=== PATIENT | male | born 1975 | race Hispanic/Latino ===

== ENCOUNTER 2018-02-17 19:13 | Emergency (ER) | payer SELFPAY ==
[2018-02-17] MEDS ORDERED: TETANUS & DIPHTHERIA TOX,ADULT 0.5 ML VIAL ONE (19:55)
[2018-02-17] MEDS ORDERED: HYDROCODONE/APAP 5/325 MG TAB ONE (19:55)
--- NOTE | 2018-02-17 20:24 | RAD REPORT ---
EXAM DESCRIPTION: RAD - Hand Left 3 View - 02/17/2018 8:13 pm CLINICAL HISTORY: Thumb laceration COMPARISON: No comparisons FINDINGS: Soft tissue swelling affects the first digit. No fracture, dislocation or radiopaque forei gn body.
--- NOTE | 2018-02-17 20:50 | ER ---
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 Transition of care: patient was not received from another setting of care. Complicating Factors: There are no complicating factors for this patient. Onset of symptoms was February 17, 2018. Risk Assessment: Do you want to hurt yourself or someone else? Patient reports no desire to harm self or others. Initial Sepsis Screen: Does the patient meet any 2 criteria? No. Patient's initial sepsis screen is negative. Does the patient have a suspected source of infection? No. Patient's initial sepsis screen is negative. Care prior to arrival: None. 19:26 Method Of Arrival: Ambulatory aj 19:26 Acuity: LESLY 4 aj Triage Assessment: 19:27 General: Appears in no apparent distress. comfortable, Behavior is calm, cooperative, aj appropriate for age. Pain: Complains of pain in palmar aspect of distal phalanx of left thumb Pain currently is 10 out of 10 on a pain scale. Neuro: Level of Consciousness is awake, alert, obeys commands, Oriented to person, place, time, situation, Appropriate for age. Respiratory: Airway is patent Respiratory effort is even, unlabored, Respiratory pattern is regular, symmetrical. Derm: Skin is intact, is healthy with good turgor, Skin is pink, warm \T\ dry. normal. Injury Description: Avulsion sustained to palmar aspect of distal phalanx of left thumb and left thumbnail. Historical: - Allergies: 19:27 No Known Allergies; aj - Home Meds: 19:27 None [Active]; aj - PMHx: 19:27 None; aj - PSHx: 19:27 None; aj - Immunization history:: Last tetanus immunization: unknown. - Social history:: Smoking status: Patient/guardian denies using tobacco. - Ebola Screening: : Patient negative for fever greater than or equal to 101.5 degrees Fahrenheit, and additional compatible Ebola Virus Disease symptoms Patient denies exposure to infectious person Patient denies travel to an Ebola-affected area in the 21 days before illness onset No symptoms or risks identified at this time. Screenin:50 Abuse screen: Denies threats or abuse. Nutritional screening: No deficits noted. la1 Tuberculosis screening: No symptoms or risk factors identified. Fall Risk None identified. Assessment: 19:49 General: Appears in no apparent distress. Behavior is calm, cooperative. Pain: la1 Complains of pain in palmar aspect of distal phalanx of left thumb. Musculoskeletal: Circulation, motion, and sensation intact. Injury Description: Avulsion sustained to palmar aspect of distal phalanx of left thumb is partial was sustained less than 30 minutes ago. Vital Signs: 19:27 BP 195 / 122; Pulse 60; Resp 18; Temp 98.5; Pulse Ox 98% on R/A; Weight 83.91 kg; aj Height 5 ft. 8 in. (172.72 cm); 20:58 BP 114 / 76; Pulse 81; Resp 18; Temp 97.5; Pulse Ox 98% on R/A; la1 19:27 Body Mass Index 28.13 (83.91 kg, 172.72 cm) aj ED Course: 19:15 Patient arrived in ED. ag3 19:27 Triage completed. aj 19:27 Arm band placed on right wrist. Patient placed in an exam room. aj 19:29 Marcus Wiseman, RN is Primary Nurse. la1 19:30 Rashawn Alarcon NP is PHCP. pm1 19:30 Cecelia Sarabia MD is Attending Physician. pm1 19:50 Call light in reach. la1 20:13 Hand Left 3 View XRAY In Process Unspecified. EDMS 20:58 No provider procedures requiring assistance completed. Patient did not have IV access la1 during this emergency room visit. Administered Medications: 19:49 Drug: Tetanus-Diphtheria Toxoid Adult 0.5 ml {Sample Worker: [employer]. Exp: la1 02/28/2020. Lot #: [id number]. } Route: IM; Site: right deltoid; 20:59 Follow up: Response: No adverse reaction la1 19:49 Drug: [place] 5 mg-325 mg 1 tabs Route: PO; la1 20:59 Follow up: Response: No adverse reaction; Pain is decreased la1 Outcome: 20:50 Discharge ordered by . pm1 20:58 Discharged to home ambulatory. la1 20:58 Condition: stable 20:58 Discharge instructions given to patient, Instructed on discharge instructions, follow up and referral plans. medication usage, Demonstrated understanding of instructions, follow-up care, medications, Prescriptions given X 2. 20:59 Patient left the ED. la1 Signatures: Dispatcher [employer] EDChristine Guadalupe RN RN aj Attema, Lee, RN RN la1 Rashawn Alarcon NP REHABILITATION SUPERVISOR pm1 Gely Ann ag3
--- NOTE | 2018-02-17 20:50 | EDPHYS ---
Physician Documentation [facility] Name: Juan Solitario Age: 42 yrs Sex: Male : 1975 Arrival Date: 02/17/2018 Time: 19:15 Bed 23 Private MD: ED Physician Cecelia Sarabia HPI: 02/17 20:30 This 42 yrs old Male presents to ER via Ambulatory with complaints of pm1 Laceration To Hand. 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 The laceration(s) is(are) located on the medial aspect of distal phalanx of left thumb. Onset: The symptoms/episode began/occurred just prior to arrival. Associated signs and symptoms: Pertinent negatives: deformity, dizziness, heavy bleeding, numbness distal to injury, suspected foreign body. The patient has not experienced similar symptoms in the past. The patient has not recently seen a physician. Historical: - Allergies: 19:27 No Known Allergies; aj - Home Meds: 19:27 None [Active]; aj - PMHx: 19:27 None; aj - PSHx: 19:27 None; aj - Immunization history:: Last tetanus immunization: unknown. - Social history:: Smoking status: Patient/guardian denies using tobacco. - Ebola Screening: : Patient negative for fever greater than or equal to 101.5 degrees Fahrenheit, and additional compatible Ebola Virus Disease symptoms Patient denies exposure to infectious person Patient denies travel to an Ebola-affected area in the 21 days before illness onset No symptoms or risks identified at this time. ROS: 20:30 Constitutional: Negative for fever, chills, and weight loss, Eyes: Negative for injury, pm1 pain, redness, and discharge, ENT: Negative for injury, pain, and discharge, Neck: Negative for injury, pain, and swelling, Cardiovascular: Negative for chest pain, palpitations, and edema, Respiratory: Negative for shortness of breath, cough, wheezing, and pleuritic chest pain, Abdomen/GI: Negative for abdominal pain, nausea, vomiting, diarrhea, and constipation, Back: Negative for injury and pain, : Negative for injury, bleeding, discharge, and swelling. 20:30 Neuro: Negative for headache, weakness, numbness, tingling, and seizure. 20:30 MS/extremity: Positive for laceration, of the medial aspect of distal phalanx of left thumb, Negative for decreased range of motion, deformity. 20:30 Skin: Positive for laceration(s), of the medial aspect of distal phalanx of left thumb. Exam: 20:30 Constitutional: This is a well developed, well nourished patient who is awake, alert, pm1 and in no acute distress. Head/Face: Normocephalic, atraumatic. Chest/axilla: Normal chest wall appearance and motion. Nontender with no deformity. No lesions are appreciated. Cardiovascular: Regular rate and rhythm with a normal S1 and S2. No gallops, murmurs, or rubs. Normal PMI, no JVD. No pulse deficits. Respiratory: Lungs have equal breath sounds bilaterally, clear to auscultation and percussion. No rales, rhonchi or wheezes noted. No increased work of breathing, no retractions or nasal flaring. Back: No spinal tenderness. No costovertebral tenderness. Full range of motion. 20:30 Skin: Appearance: normal except for affected area, injury, avulsion(s), a small 2 cm(s), of the medial aspect of distal phalanx of left thumb. 20:30 Neuro: Orientation: is normal, Motor: is normal, moves all fours, Sensation: is normal, no obvious gross deficits, Gait: is steady, at a normal pace, without difficulty. Vital Signs: 19:27 BP 195 / 122; Pulse 60; Resp 18; Temp 98.5; Pulse Ox 98% on R/A; Weight 83.91 kg; aj Height 5 ft. 8 in. (172.72 cm); 20:58 BP 114 / 76; Pulse 81; Resp 18; Temp 97.5; Pulse Ox 98% on R/A; la1 19:27 Body Mass Index 28.13 (83.91 kg, 172.72 cm) aj Laceration: 20:30 Wound Repair of 2cm ( 0.8in ) subcutaneous laceration to medial aspect of distal pm1 phalanx of left thumb. avulsion. Distal neuro/vascular/tendon intact. Anesthesia: Local anesthetic administered with 1% lidocaine. Skin closed with 1-0 Prolene using surgicel applied to wound and bleeding stopped.. Dressed with tube gauze, pressure dressing. Patient tolerated well. MDM: 19:30 Patient medically screened. pm1 20:47 Data reviewed: vital signs. Data interpreted: Pulse oximetry: on room air is 98 %. pm1 Interpretation: normal. Counseling: I had a detailed discussion with the patient and/or guardian regarding: the historical points, exam findings, and any diagnostic results supporting the discharge/admit diagnosis, radiology results, the need for outpatient follow up, to return to the emergency department if symptoms worsen or persist or if there are any questions or concerns that arise at home. 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 Exp: la1 02/28/2020. Lot #: [id number]. } Route: IM; Site: right deltoid; 20:59 Follow up: Response: No adverse reaction la1 19:49 Drug: [place] 5 mg-325 mg 1 tabs Route: PO; la1 20:59 Follow up: Response: No adverse reaction; Pain is decreased la1 Disposition: 02/18 02:52 Co-signature as Attending Physician, Cecelia Sarabia MD. [facility] Disposition: 02/17/18 20:50 Discharged to Home. Impression: Laceration without foreign body of left thumb without damage to nail. - Condition is Stable. - Discharge Instructions: Nonsutured Laceration Care. - Prescriptions for Keflex 500 mg Oral Capsule - take 1 capsule by ORAL route every 12 hours for 10 days; 20 capsule. Tylenol- Codeine #3 300-30 mg Oral Tablet - take 2 tablets by ORAL route every 6 hours As needed; 20 tablet. - Medication Reconciliation Form, Thank You Letter, Antibiotic Education, Prescription Opioid Use form. - Follow up: Emergency Department; When: As needed; Reason: Worsening of condition. Follow up: Private Physician; When: 2 - 3 days; Reason: Recheck today's complaints, Continuance of care, Re-evaluation by your physician. - Problem is new. - Symptoms have improved. Signatures: Dispatcher [employer] Christine Harrison RN RN aj Attema, Lee, RN RN la1 Rashawn Alarcon, CANE PACKER CANE PACKER pm1 Cecelia Sarabia MD MD ma2 Corrections: (The following items were deleted from the chart) 02/17 20:59 20:50 02/17/2018 20:50 Discharged to Home. Impression: Laceration without foreign body la1 of left thumb without damage to nail. Condition is Stable. Forms are Medication Reconciliation Form, Thank You Letter, Antibiotic Education, Prescription Opioid Use. Follow up: Emergency Department; When: As needed; Reason: Worsening of condition. Follow up: Private Physician; When: 2 - 3 days; Reason: Recheck today's complaints, Continuance of care, Re-evaluation by your physician. Problem is new. Symptoms have improved. pm1
== END 2018-02-17 20:59 | disposition home or self-care (01) ==
LOC: ER 19:13
PROC: 0JQK0ZZ Repair Left Hand Subcutaneous Tissue and Fascia, Open Approach (ICD-10-PCS; principal; 2018-02-17)
DX: S61.012A Laceration without foreign body of left thumb without damage to nail, initial encounter (principal); W31.89XA Contact with other specified machinery, initial encounter; Y93.89 Activity, other specified; Y92.89 Other specified places as the place of occurrence of the external cause; Y99.8 Other external cause status; Z23 Encounter for immunization
CPT/HCPCS: 90714; 99283

== ENCOUNTER 2018-02-22 14:39 | Emergency (ER) | payer SELFPAY ==
--- NOTE | 2018-02-22 15:43 | EDPHYS ---
Physician Documentation [facility] Name: Juan Solitario Age: 42 yrs Sex: Male : 1975 Arrival Date: 02/22/2018 Time: 14:48 Bed 9 Private MD: ED Physician Remberto Baker HPI: 02/22 15:32 This 42 yrs old Male presents to ER via Ambulatory with complaints of Wound jr8 Check. 15:32 The affected area is on the left hand. Previous treatment: The patient was initially jr8 treated 6 day(s) ago. Progress: The patient reports decreased pain, redness. The patient has not experienced similar symptoms in the past. The patient has not recently seen a physician. Patient cut his left thumb while at work last week. Wants it rechecked to make sure it is healing well . Historical: - Allergies: 15:12 No Known Allergies; hj - Home Meds: 15:12 None [Active]; hj - PMHx: 15:12 None; hj - PSHx: 15:12 None; hj - Immunization history:: Adult Immunizations up to date. - Social history:: Smoking status: Patient/guardian denies using tobacco, Patient/guardian denies using alcohol. - Ebola Screening: : Patient negative for fever greater than or equal to 101.5 degrees Fahrenheit, and additional compatible Ebola Virus Disease symptoms Patient denies exposure to infectious person Patient denies travel to an Ebola-affected area in the 21 days before illness onset. ROS: 15:32 Eyes: Negative for injury, pain, redness, and discharge, ENT: Negative for injury, jr8 pain, and discharge, Neck: Negative for injury, pain, and swelling, Cardiovascular: Negative for chest pain, palpitations, and edema, Respiratory: Negative for shortness of breath, cough, wheezing, and pleuritic chest pain, Abdomen/GI: Negative for abdominal pain, nausea, vomiting, diarrhea, and constipation, Back: Negative for injury and pain, Skin: Negative for injury, rash, and discoloration, Neuro: Negative for headache, weakness, numbness, tingling, and seizure. 15:32 MS/extremity: Positive for avulsion of skin to left hand. Exam: 15:32 Eyes: Pupils equal round and reactive to light, extra-ocular motions intact. Lids and jr8 lashes normal. Conjunctiva and sclera are non-icteric and not injected. Cornea within normal limits. Periorbital areas with no swelling, redness, or edema. ENT: Nares patent. No nasal discharge, no septal abnormalities noted. Tympanic membranes are normal and external auditory canals are clear. Oropharynx with no redness, swelling, or masses, exudates, or evidence of obstruction, uvula midline. Mucous membranes moist. Neck: Trachea midline, no thyromegaly or masses palpated, and no cervical lymphadenopathy. Supple, full range of motion without nuchal rigidity, or vertebral point tenderness. No Meningismus. Cardiovascular: Regular rate and rhythm with a normal S1 and S2. No gallops, murmurs, or rubs. Normal PMI, no JVD. No pulse deficits. Respiratory: Lungs have equal breath sounds bilaterally, clear to auscultation and percussion. No rales, rhonchi or wheezes noted. No increased work of breathing, no retractions or nasal flaring. Abdomen/GI: Soft, non-tender, with normal bowel sounds. No distension or tympany. No guarding or rebound. No evidence of tenderness throughout. Back: No spinal tenderness. No costovertebral tenderness. Full range of motion. Skin: Warm, dry with normal turgor. Normal color with no rashes, no lesions, and no evidence of cellulitis. Neuro: Awake and alert, GCS 15, oriented to person, place, time, and situation. Cranial nerves II-XII grossly intact. Motor strength 5/5 in all extremities. Sensory grossly intact. Cerebellar exam normal. Normal gait. 15:32 Musculoskeletal/extremity: Extremities: grossly normal except: noted in the left thumb: Patient has avulsed lateral portion of left thumb. [place] granulation tissue noted. No purulent drainage. No surrounding erythema or cellulitis noted, ROM: intact in all extremities, Circulation is intact in all extremities. Sensation intact. Vital Signs: 15:13 BP 157 / 98; Pulse 63; Resp 18; Temp 97.8(TE); Pulse Ox 100% on R/A; Weight 72.57 kg; hj Height 5 ft. 7 in. (170.18 cm); 15:13 Body Mass Index 24.53 (72.57 kg, 170.18 cm) MDM: 15:29 Patient medically screened. [facility] 15:32 Data reviewed: vital signs, nurses notes, and as a result, I will discharge patient. jr8 Data interpreted: Pulse oximetry: on room air is 100 %. Interpretation: normal. Counseling: I had a detailed discussion with the patient and/or guardian regarding: the historical points, exam findings, and any diagnostic results supporting the discharge/admit diagnosis, the need for outpatient follow up, a family practitioner, to return to the emergency department if symptoms worsen or persist or if there are any questions or concerns that arise at home. Administered Medications: No medications were administered Disposition: 02/23 06:42 Co-signature as Attending Physician, Remberto Baker MD I agree with the assessment and makayla plan of care. Disposition: 02/22/18 15:43 Discharged to Home. Impression: Avulsion of skin . - Condition is Stable. - Discharge Instructions: Wound Check, Wound Care. - Medication Reconciliation Form, Thank You Letter, Antibiotic Education, Prescription Opioid Use form. - Follow up: Private Physician; When: As needed; Reason: Wound Recheck, Recheck today's complaints, Continuance of care, Re-evaluation by your physician. - Problem is new. - Symptoms have improved. Signatures: Remberto Baker MD MD cha Williams, Irene, RN RN iw Slade Mckeon PA PA jr8 Raul Tavarez RN RN Corrections: (The following items were deleted from the chart) 02/22 15:52 15:32 Wound Care ordered. 8 15:52 15:32 Dressing - Wound ordered. [facility] 15:52 15:43 02/22/2018 15:43 Discharged to Home. Impression: Avulsion of skin . Condition is iw Stable. Forms are Medication Reconciliation Form, Thank You Letter, Antibiotic Education, Prescription Opioid Use. Follow up: Private Physician; When: As needed; Reason: Wound Recheck, Recheck today's complaints, Continuance of care, Re-evaluation by your physician. Problem is new. Symptoms have improved. jr8
--- NOTE | 2018-02-22 15:43 | ER ---
Nurse's Notes [facility] Name: Juan Solitario Age: 42 yrs Sex: Male : 1975 Arrival Date: 02/22/2018 Time: 14:48 Bed 9 Private MD: Diagnosis: Avulsion of skin Presentation: 02/22 15:11 Presenting complaint: Patient states: i cut my L thumb last week and i want my wound to hj be checked again today;. Transition of care: patient was not received from another setting of care. Onset of symptoms was February 22, 2018. Risk Assessment: Do you want to hurt yourself or someone else? Patient reports no desire to harm self or others. Initial Sepsis Screen: Does the patient meet any 2 criteria? No. Patient's initial sepsis screen is negative. Does the patient have a suspected source of infection? No. Patient's initial sepsis screen is negative. Care prior to arrival: None. 15:11 Method Of Arrival: Ambulatory hj 15:11 Acuity: LESLY 4 hj Triage Assessment: 15:13 General: Appears in no apparent distress. uncomfortable, Behavior is calm, cooperative, hj appropriate for age. Pain: Denies pain. Historical: - Allergies: 15:12 No Known Allergies; hj - Home Meds: 15:12 None [Active]; hj - PMHx: 15:12 None; hj - PSHx: 15:12 None; hj - Immunization history:: Adult Immunizations up to date. - Social history:: Smoking status: Patient/guardian denies using tobacco, Patient/guardian denies using alcohol. - Ebola Screening: : Patient negative for fever greater than or equal to 101.5 degrees Fahrenheit, and additional compatible Ebola Virus Disease symptoms Patient denies exposure to infectious person Patient denies travel to an Ebola-affected area in the 21 days before illness onset. Screenin:12 Abuse screen: Denies threats or abuse. Denies injuries from another. Nutritional hj screening: No deficits noted. Tuberculosis screening: No symptoms or risk factors identified. Fall Risk None identified. Assessment: 15:40 General: Appears in no apparent distress. comfortable, Behavior is calm, cooperative. iw Pain: Complains of pain in left hand. Neuro: Level of Consciousness is awake, alert, obeys commands, Oriented to person, place, time, situation, Moves all extremities. Full function. Cardiovascular: Patient's skin is warm and dry. Respiratory: Respiratory effort is even, unlabored. Derm: Wound noted palmar aspect of distal phalanx of left thumb. Musculoskeletal: Range of motion: intact in all extremities. Vital Signs: 15:13 BP 157 / 98; Pulse 63; Resp 18; Temp 97.8(TE); Pulse Ox 100% on R/A; Weight 72.57 kg; hj Height 5 ft. 7 in. (170.18 cm); 15:13 Body Mass Index 24.53 (72.57 kg, 170.18 cm) hj ED Course: 14:48 Patient arrived in ED. mr 15:12 Triage completed. hj 15:13 Arm band placed on right wrist. hj 15:13 Patient has correct armband on for positive identification. Placed in gown. Bed in low hj position. Call light in reach. Side rails up X 1. 15:27 [facility] jr 15:27 Remberto Baker MD is Attending Physician. [facility] 15:49 Christine Martinez, RN is Primary Nurse. 15:51 Primary Nurse role handed off by Christine Martinez RN iw 15:51 Andreea Rosas, TITI is Primary Nurse. iw 15:52 No provider procedures requiring assistance completed. Patient did not have IV access iw during this emergency room visit. Administered Medications: No medications were administered Outcome: 15:43 Discharge ordered by . jr 15:52 Discharged to home ambulatory, with friend. iw 15:52 Condition: good 15:52 Discharge instructions given to patient, family, Instructed on discharge instructions, follow up and referral plans. 15:52 Patient left the ED. iw Signatures: Christine Martinez RN RN aj Rivera, Mary mr Andreea Rosas RN RN Slade Mckeon PA PA Raul Calderon RN RN Corrections: (The following items were deleted from the chart) 15:16 15:13 Pulse 63bpm; Resp 18bpm; Pulse Ox 100% RA; Temp 97.8F Temporal; 72.57 kg; Height hj 5 ft. 7 in.; BMI: 24.5; hj
== END 2018-02-22 15:52 | disposition home or self-care (01) ==
LOC: ER 14:39
DX: S61.002A Unspecified open wound of left thumb without damage to nail, initial encounter (principal); W45.8XXA Other foreign body or object entering through skin, initial encounter; Y93.9 Activity, unspecified; Y92.9 Unspecified place or not applicable; Z48.00 Encounter for change or removal of nonsurgical wound dressing
CPT/HCPCS: 99281

== ENCOUNTER 2022-11-26 13:04 | Emergency (ER) | payer SELFPAY ==
--- OUTSIDE RECORDS SUMMARY | 2022-11-26 13:07 | XMS REPORT | Continuity of Care Document ---
:1975 Author Organization [facility] t Address [address] [facility] [address] [place] [id number] Care Team Providers Name Role Phone Susie Billingsley Attending Clinician Ellen RN, Kristi Baer Attending Clinician Unavailable Human Destiny LIMON Attending Clinician Magalis Finney Attending Clinician Lab, Adc Fam Pob I Attending Clinician Unavailable MAGALIS SHAH Attending Clinician Unavailable Doctor Unassigned, [place] [facility] Attending Clinician Unavailable Payers Payer Name Policy Type Policy Number Effective Date Expiration Date S ource Problems This patient has no known problems. Allergies, Adverse Reactions, Alerts Allergy Allergy Status Severity Reaction(s) Onset Inactive Treating Comm ents Source Name Type Date Date Clinician NO KNOWN Drug Active Univers ALLERGIE Class ity of [facility] Social History Social Habit Start Date Stop Date Quantity Comments Source Sex Assigned At Uni versity [facility] Smoking Status Start Date Stop Date Source Unknown if ever smoked Universit y [facility] Medications This patient has no known medications. Procedures This patient has no known procedures. Encounters Start End Encounter Admission Attending Care Care Encounter Source Date/Time Date/Time Type Type Clinicians Facility Department ID 2019-09-01 2019-09-01 Telephone [facility] [id number] Univers 00:00:00 00:00:00 Susie Davis [id number] i Uriel [id number] Kayden guzman ruthkasi [phone] Sd dical [address] 2019-08-31 2019-08-31 Dio [place] [id number] Univers 00:00:00 00:00:00 (Out) , Kristi LOMBARDI [id number] ity of HOSPITAL [phone] [facility] [address] 2019-08-30 2019-08-30 Telephone Robbie [facility] [id number] Univers 00:00:00 00:00:00 Destiny [facility] [id number] ity of Specialty [id number] [place] [facility] - [phone] [facility] [address] 2019-08-29 2019-08-29 [facility] [id number] Univers 00:00:00 00:00:00 Magalis [facility] [id number] it y of [place] [id number] Alexandre as Professio [phone] Sd dic[address] Office Building [facility] 2019-08-25 2019-08-25 Laboratory Lab, Adc Fam Pob I [facility] [id number] Univers 09:23:48 09:43:48 Only Magalis [facility] [id number] ity of [place] [id number] Alexandre as Professio [phone] Sd dical nal [address] [place] [address] Office Building [facility] 2019-08-25 2019-08-25 [id number] Univers 09:40:00 09:40:00 MAGALIS ity of [facility] 2019-08-25 2019-08-25 Letter Doctor LAMAR [id number] Univers 00:00:00 00:00:00 (Out) Unassigned, MARIA C [id number] ity of [facility] [id number] Alexandre as [phone] [address] Results This patient has no known results.
[2022-11-26 13:44] LABS: Specific Gravity > 1.030 (1.005-1.030); Urine Bilirubin NEGATIVE (Negative); Urine Blood Negative (Negative); Urine Clarity Clear (Clear); Urine Color Colorless (Yellow); Urine Glucose 4+ (Over) (Negative); Urine Protein NEGATIVE (Negative); Urine Urobilinogen Normal (Normal)
[2022-11-26 13:55] LABS: Absolute Lymphocytes (CBC) 1.4 K/uL (0.7-4.9); Lymphocytes % 18.9 % (15.3-44.8); MPV 8.7 fL (7.6-11.3); Platelets 215 thou/uL (152-406); RBC Red Blood Cell Count 5.33 M/uL (4.33-5.43)
[2022-11-26] MEDS ORDERED: NA CHLORIDE 0.9% 1,000 ML ONE (13:56)
[2022-11-26 14:12] LABS: Potassium 4.1 mEq/L (3.5-5.1)
[2022-11-26] MEDS ORDERED: INSULIN REGULAR (HUMAN) 100 UNIT/ML ONE (14:47)
--- NOTE | 2022-11-26 15:11 | ER ---
Nurse's Notes [facility] Name: Juan Solitario Age: 47 yrs Sex: Male : 1975 Arrival Date: 11/26/2022 Time: 13:04 Bed DIS2 Private MD: Diagnosis: Hyperglycemia, unspecified Presentation: 11/26 13:13 Chief complaint: Patient states: "My sugar was really high, like 518. I have a history mb9 of DM. I've missed my medicine doses for the past week." Pt denies N/V/D. Coronavirus screen: At this time, the client does not indicate any symptoms associated with coronavirus-19. Ebola Screen: No symptoms or risks identified at this time. Initial Sepsis Screen: Does the patient meet any 2 criteria? No. Patient's initial sepsis screen is negative. Does the patient have a suspected source of infection? No. Patient's initial sepsis screen is negative. Risk Assessment: Do you want to hurt yourself or someone else? Patient reports no desire to harm self or others. Onset of symptoms was November 26, 2022. 13:13 Method Of Arrival: Ambulatory mb9 13:13 Acuity: LESLY 3 mb9 Triage Assessment: 13:18 General: Appears in no apparent distress. Behavior is calm, cooperative. Pain: Denies mb9 pain. Neuro: [place] Agitation-Sedation Scale (RASS): 0 - Alert and Calm Level of Consciousness is awake, alert, obeys commands, Oriented to person, place, time, situation, Appropriate for age. Cardiovascular: Patient's skin is warm and dry. Respiratory: Airway is patent Respiratory effort is even, unlabored, Respiratory pattern is regular, symmetrical. GI: No signs and/or symptoms were reported involving the gastrointestinal system. : No signs and/or symptoms were reported regarding the genitourinary system. Derm: Skin is pink, warm \\T\\ dry. Musculoskeletal: Range of motion: intact in all extremities. 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 - Social history:: Smoking status: Patient denies any tobacco usage or history of. Screenin:20 [facility] ED Fall Risk Assessment (Adult) Score/Fall Risk Level 0 - 2 = Low Risk. Abuse iw screen: Denies threats or abuse. Denies injuries from another. Nutritional screening: No deficits noted. Tuberculosis screening: No symptoms or risk factors identified. Assessment: 13:30 General: Appears in no apparent distress. Behavior is calm, cooperative. Pain: Denies iw pain. Neuro: Level of Consciousness is awake, alert, obeys commands, Oriented to person, place, time, situation, Moves all extremities. Full function. Cardiovascular: Patient's skin is warm and dry. Respiratory: Respiratory effort is even, unlabored, Respiratory pattern is regular, symmetrical. Derm: Skin is intact, is healthy with good turgor. Musculoskeletal: Range of motion: intact in all extremities. Vital Signs: 13:13 BP 162 / 101; Pulse 86; Resp 18; Temp 97.7; Pulse Ox 100% on R/A; Weight 90.72 kg; mb9 Height 5 ft. 7 in. ; Pain 0/10; 13:13 Body Mass Index 30.67 (90.72 kg, 172 cm) mb9 13:13 Pain Scale: Adult mb9 ED Course: 13:08 Patient arrived in ED. mg5 13:11 [facility] kb 13:12 Rafael Barraza MD is Attending Physician. kb 13:13 Arm band placed on. mb9 13:15 Triage completed. mb9 13:41 Basic Metabolic Panel Sent. iw 13:41 CBC with Diff Sent. iw 13:41 Inserted saline lock: 20 gauge in left antecubital area, using aseptic technique. Blood iw collected. 14:34 Andreea Rosas, RN is Primary Nurse. iw 15:15 No provider procedures requiring assistance completed. iw Administered Medications: 13:42 Drug: NS 0.9% IV 1000 ml IV at 1000 ml once Route: IV; Rate: 1000 ml; Site: left iw antecubital; 14:45 Follow up: IV Status: Completed infusion iw 14:38 Drug: Insulin Regular Human IVP 10 units IVP once {Co-Signature: iw (Andreea Rosas ap3 RN).} Route: IVP; Site: left antecubital; 15:15 Follow up: Response: No adverse reaction; Blood sugar is lowered iw Outcome: 15:11 Discharge ordered by MD. sandhu 15:28 Patient left the ED. iw Signatures: Wendi Clarke FNP-C FNP-Andreea Solano RN RN iw Christine Hernandez RN RN ap3 Irineo, Fiorella Esqueda RN RN mb9 Lory Cavazos mg5 Andreea Rosas RN iw Corrections: (The following items were deleted from the chart) 13:18 13:13 Pulse 86bpm; Resp 18bpm; Pulse Ox 100% RA; Temp 97.7F; 90.72 kg; Height 5 ft. 7 mb9 in.; BMI: 30.6; Pain 0/10, Adult; mb9
--- NOTE | 2022-11-26 15:11 | EDPHYS ---
Physician Documentation [facility] Name: Juan Solitario Age: 47 yrs Sex: Male : 1975 Arrival Date: 11/26/2022 Time: 13:04 Bed DIS2 Private MD: ED Physician Rafael Barraza HPI: 11/26 15:04 This 47 yrs old Male presents to ER via Ambulatory with complaints of kb HYPERCLYCEMIA. 15:05 The patient or guardian reports hyperglycemia. Onset: The symptoms/episode kb began/occurred today. Associated signs and symptoms: Pertinent positives: None. Pertinent negatives: None. Current symptoms: In the emergency department the patient's symptoms are unchanged from the initial presentation. The patient has experienced similar episodes in the past. The patient has not recently seen a physician. Pt states he had labs done yesterday and was called today, told that his sugar was high and he needed to come to the ER. Pt denies any symptoms. States he hasn't taken his medication in a week. 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 - Social history:: Smoking status: Patient denies any tobacco usage or history of. ROS: 15:04 Constitutional: Negative for fever, chills, and weight loss, kb 15:04 All other systems are negative, Exam: 15:04 Constitutional: This is a well developed, well nourished patient who is awake, alert, kb and in no acute distress. Head/Face: Normocephalic, atraumatic. ENT: Moist Mucous membranes Cardiovascular: Regular rate Respiratory: Respirations even and unlabored. No increased work of breathing. Talking in full sentences Abdomen/GI: Soft, non-tender. No distention Skin: Warm, dry with normal turgor. Normal color. MS/ Extremity: Pulses equal, no cyanosis. Neurovascular intact. Full, normal range of motion. Neuro: Awake and alert, GCS 15, oriented to person, place, time, and situation. Moves all extremities. Normal gait. Vital Signs: 13:13 BP 162 / 101; Pulse 86; Resp 18; Temp 97.7; Pulse Ox 100% on R/A; Weight 90.72 kg; mb9 Height 5 ft. 7 in. ; Pain 0/10; 13:13 Body Mass Index 30.67 (90.72 kg, 172 cm) mb9 13:13 Pain Scale: Adult mb9 MDM: 13:12 Patient medically screened. kb 15:06 Differential diagnosis: DKA, hyperglycemia. Data reviewed: vital signs, nurses notes. kb External Records Reviewed: Outpatient labs: outpatient labs done yesterday reviewed. Counseling: I had a detailed discussion with the patient and/or guardian regarding the historical points, exam findings, and any diagnostic results supporting the discharge/admit diagnosis, lab results, the need for outpatient follow up, a family practitioner, to return to the emergency department if symptoms worsen or persist or if there are any questions or concerns that arise at home. 11/26 13:16 Order name: CBC with Diff; Complete Time: 13:58 kb 11/26 13:16 Order name: Basic Metabolic Panel; Complete Time: 14:23 kb 11/26 13:16 Order name: Urinalysis w/ reflexes; Complete Time: 13:50 kb 11/26 15:22 Order name: Glucose, Ancillary Testing; Complete Time: 15:26 EDMS 11/26 13:16 Order name: IV Start; Complete Time: 13:41 kb 11/26 15:07 Order name: Blood Glucose Level; Complete Time: 15:11 kb Administered Medications: 13:42 Drug: NS 0.9% IV 1000 ml IV at 1000 ml once Route: IV; Rate: 1000 ml; Site: left iw antecubital; 14:45 Follow up: IV Status: Completed infusion iw 14:38 Drug: Insulin Regular Human IVP 10 units IVP once {Co-Signature: iw (Andreea Rosas RN).} Route: IVP; Site: left antecubital; 15:15 Follow up: Response: No adverse reaction; Blood sugar is lowered iw Disposition: 17:21 Co-signature as Attending Physician, Rafael Barraza MD I reviewed the patient's care rt provided by the Advanced Practice Provider and agree with the diagnosis and treatment plan. Disposition Summary: 11/26/22 15:11 Discharge Ordered Notes: Location: Home kb Condition: Stable kb Diagnosis - Hyperglycemia, unspecified kb Followup: kb - With: Emergency Department - When: As needed - Reason: Worsening of condition Followup: kb - With: Private Physician - When: 2 - 3 days - Reason: Recheck today's complaints, Continuance of care, Re-evaluation by your physician Discharge Instructions: - Discharge Summary Sheet kb - Hyperglycemia, [id number] kb Forms: - Medication Reconciliation Form kb - Thank You Letter kb - Antibiotic Education kb - Prescription Opioid Use kb - Patient Portal Instructions kb - Leadership Thank You Letter kb Signatures: Dispatcher [employer] EDMI Wendi Clarke, PET GROOMER-C PET GROOMER-Ckb Andreea Rosas, RN RN iw Christine Hernandez RN RN ap3 Fiorella Cabello RN RN mb9 Rafael Barraza MD MD rt Andreea Rosas RN iw
[2022-11-26 18:11] VITALS: BP 162/101; TEMP 97.7; O2SAT 100
== END 2022-11-26 15:28 | disposition home or self-care (01) ==
LOC: ER 13:04
DX: E11.65 Type 2 diabetes mellitus with hyperglycemia (principal)
CPT/HCPCS: 36415; 80048; 81003; 82947; 85025; J1815; J7030